=== PATIENT | female | born 1945 | race Caucasian/White ===

== ENCOUNTER 2019-06-27 12:15 | Outpatient (CLI) | payer MEDICARE, OTHER ==
--- NOTE | 2019-06-27 12:37 | RAD ---
RIGHT KNEE 4 VIEWS: HISTORY: right knee pain, arthritis FINDINGS: There are degenerative changes manifested by osteophyte formation and joint space narrowing. No fract ure, dislocation or bony destruction is seen. IMPRESSION: Right knee osteoarthritis.
== END 2019-06-27 12:16 | disposition home or self-care (01) ==
LOC: BICRAD 12:15
PROVIDERS: ATTEND Specialist
DX: M13.861 Other specified arthritis, right knee (principal); M17.11 Unilateral primary osteoarthritis, right knee

== ENCOUNTER 2022-06-19 10:31 | Outpatient (CLI) | payer MEDICARE, OTHER | END 2022-06-19 10:32 | disposition home or self-care (01) | LOC: BICMAMMO 10:31 | PROVIDERS: ATTEND Specialist | DX: Z12.31 Encounter for screening mammogram for malignant neoplasm of breast (principal) | CPT/HCPCS: 77063; 77067 ==

== ENCOUNTER 2022-07-12 12:25 | Outpatient (CLI) | payer MEDICARE, OTHER | END 2022-07-12 12:26 | disposition home or self-care (01) | LOC: BICULT 12:25 | PROVIDERS: ATTEND Internal Medicine Cardiovascular Disease | DX: R79.89 Other specified abnormal findings of blood chemistry (principal) | CPT/HCPCS: 76705 ==

== ENCOUNTER 2023-02-28 10:04 | Outpatient (CLI) | payer OTHER | END 2023-02-28 10:05 | disposition home or self-care (01) | LOC: BICULT 10:04 | PROVIDERS: ATTEND Specialist | DX: R31.9 Hematuria, unspecified (principal) | CPT/HCPCS: 76770 ==

== ENCOUNTER 2023-07-04 12:05 | Outpatient (CLI) | payer OTHER | END 2023-07-04 12:06 | disposition home or self-care (01) | LOC: BICMAMMO 12:05 | PROVIDERS: ATTEND Specialist | DX: Z12.31 Encounter for screening mammogram for malignant neoplasm of breast (principal) | CPT/HCPCS: 77063; 77067 ==

== ENCOUNTER 2023-12-03 10:43 | Outpatient (CLI) | payer OTHER ==
[2023-12-03] MEDS ORDERED: Iopamidol 370 76% 100 ML VIAL ONE (13:33)
== END 2023-12-03 10:44 | disposition home or self-care (01) ==
LOC: BICCT 10:43
PROVIDERS: ATTEND Urology
DX: N95.2 Postmenopausal atrophic vaginitis (principal); R31.29 Other microscopic hematuria
CPT/HCPCS: 74178; 82565

== ENCOUNTER 2024-10-16 13:22 | Outpatient (CLI) | payer OTHER | END 2024-10-16 13:23 | disposition home or self-care (01) | LOC: BICRAD 13:22 | PROVIDERS: ATTEND Specialist | DX: M54.50 Low back pain, unspecified (principal); M47.816 Spondylosis without myelopathy or radiculopathy, lumbar region | CPT/HCPCS: 72100 ==

== ENCOUNTER 2025-07-09 11:55 | Outpatient (CLI) | payer MEDICARE, OTHER | END 2025-07-09 11:56 | disposition home or self-care (01) | LOC: BICMAMMO 11:55 | PROVIDERS: ATTEND Specialist | DX: Z12.31 Encounter for screening mammogram for malignant neoplasm of breast (principal) | CPT/HCPCS: 77063; 77067 ==